=== PATIENT | female | born 1975 ===

== ENCOUNTER 2025-08-02 06:00 | Day surgery (SDC) | payer OTHER ==
[2025-07-29 12:58] VITALS: BP 148/82
[~2025-08-02] VITALS: Ht 152.4 cm; Wt 64.4 kg
[2025-08-02] MEDS ORDERED: POVIDONE-IODINE 118 ML BOTT TOP ONE (06:57)
[2025-08-02] MEDS ORDERED: CHLORHEXIDINE GLUCONATE 120 ML BOTTLE TOP ONE (06:57)
[2025-08-02] MEDS ORDERED: IBU600 MG PO (08:26)
== END 2025-08-02 13:20 | disposition home or self-care (01) ==
LOC: CIR.AMB 06:00
PROVIDERS: ATTEND Obstetrics & Gynecology Gynecology
DX: N92.1 Excessive and frequent menstruation with irregular cycle (principal); D25.0 Submucous leiomyoma of uterus